=== PATIENT | female | born 1965 | race Caucasian/White ===

== ENCOUNTER 2016-08-10 12:46 | Emergency (ER) | payer OTHER ==
[2016-08-10 12:48] VITALS: BP 136/73; PULSE 94; RESP 15; TEMP 98.2; O2SAT 95
[2016-08-10] MEDS ORDERED: GABA600T PO (14:05)
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
[2016-08-10] MEDS ORDERED: SODIUM CHLOR 0.9% 1000 ML INJ 1,000 ML IV ONE (14:34)
[2016-08-10] MEDS ORDERED: PROCHLORPERAZINE INJ 10 MG/2 ML VIAL IVP ONE (14:45)
[2016-08-10] MEDS ORDERED: diphenhydrAMINE HCL 50 MG/ML VIAL IVP ONE (14:45)
[2016-08-10] MEDS ORDERED: KETOROLAC TROMETHAMINE 30 MG/ML (IVP) VIAL IVP ONE (14:45)
[2016-08-10] MEDS ORDERED: SODIUM CHLORIDE 0.9% FLUSH 5 ML FLUSH IVF PRN (14:45)
[2016-08-10] MEDS ORDERED: DOXY100C PO (16:25)
== END 2016-08-10 16:33 | disposition home or self-care (01) ==
LOC: NETRI 12:46
DX: R51 Headache (principal); H61.22 Impacted cerumen, left ear; J01.90 Acute sinusitis, unspecified; F17.200 Nicotine dependence, unspecified, uncomplicated
CPT/HCPCS: 96374; 96375; 99283; J0780; J1200; J1885; J7030